=== PATIENT | male | born 1985 | race Caucasian/White ===

== ENCOUNTER 2019-10-28 09:31 | Emergency (ER) | payer SELFPAY ==
[~2019-10-28] VITALS: Ht 180.3 cm; Wt 100.4 kg
[2019-10-28] MEDS ORDERED: PENCILLIN V PO250 MG PO (10:09)
[2019-10-28] MEDS ORDERED: KETOROLAC TROME10 MG PO (10:09)
[2019-10-28 10:22] VITALS: BP 154/97
== END 2019-10-28 10:25 | disposition home or self-care (01) ==
LOC: FSED 09:31
DX: K02.9 Dental caries, unspecified (principal); I10 Essential (primary) hypertension
CPT/HCPCS: 99282